=== PATIENT | male | born 1995 | race Caucasian/White ===

== ENCOUNTER 2021-05-20 13:46 | Emergency (ER) | payer OTHER ==
[2021-05-20 15:01] LABS: #Lymphocytes 1.3 thou/uL (1.20-3.40); #Monocytes 0.6 thou/uL (0.11-0.59); #Neutrophils 3.7 thou/uL (1.40-6.50); %Basophils 0.6 % (0.0-1.0); %Eosinophils 0.8 % (0.0-10.0); %Lymphocytes 22.3 % (21.0-51.0); %Monocytes 10.4 % (0.0-10.0); %Neutrophils 65.9 % (42.0-75.0); Hemoglobin 10.9 g/dL (14.0-18.0); Mean Corpuscular HGB CONC 29.6 g/dL (32.0-36.0); Mean Corpuscular Volume 74.4 fL (78.0-98.0); Mean Platelet Volume 9.3 fL (7.4-10.4); Platelet Count 345 thou/uL (130-400); RBC Distribution Width 18.1 % (11.5-14.5); Red Blood Cell (RBC) Count 4.97 mill/uL (4.70-6.10); White Blood Cell (WBC) Count 5.7 thou/uL (4.8-10.8)
[2021-05-20 15:20] LABS: Anisocytosis SLIGHT = 6-15 cells (100X) (0-5/hpf); Hypochromia SLIGHT = 6-15 cells (100X) (0-5/hpf); MDiff Complete? YES; Microcytosis SLIGHT = 6-15 cells (100X) (0-5/hpf); Platelet Morphology Comment Appears Adequate; Polychromasia SLIGHT = 2-3 cells (100X) (0-2/hpf); Stomatocytes SLIGHT = 2-5 cells (100X) (0-1/hpf)
[2021-05-20 15:29] LABS: ALT (SGPT) 15 U/L (8-55); AST (SGOT) 17 U/L (5-34); Albumin 4.2 g/dL (3.5-5.0); Alkaline Phosphatase 101 U/L (40-110); Anion Gap 15 mmol/L (10-20); BUN (Urea Nitrogen) 20 mg/dL (8.9-20.6); Bilirubin, Total 0.2 mg/dL (0.2-1.2); Calc. Creatinine Clearance 0 mL/min (70-130); Calcium 9.8 mg/dL (7.8-10.44); Carbon Dioxide 24 mmol/L (22-29); Chloride 105 mmol/L (98-107); Globulin 3.2 g/dL (2.4-3.5); Glucose 90 mg/dL (70-105); Potassium 3.8 mmol/L (3.5-5.1); Protein, Total 7.4 g/dL (6.0-8.3); Sodium 140 mmol/L (136-145)
== END 2021-05-20 17:05 | disposition home or self-care (01) ==
LOC: ERS 13:46
DX: D64.9 Anemia, unspecified (principal); Z87.891 Personal history of nicotine dependence
CPT/HCPCS: 36415; 80053; 85025; 99284

== ENCOUNTER 2022-07-21 18:17 | Inpatient (IN) | payer OTHER ==
[2022-07-21 21:22] VITALS: BMI 14.5
[2022-07-21] MEDS ORDERED: Acetaminophen 650 MG Suppository PR PRN (21:26)
[2022-07-21] MEDS ORDERED: Acetaminophen 325 MG TAB PO PRN ×2 (21:26→21:30)
[2022-07-21] MEDS ORDERED: Ondansetron ODT 4 MG TAB PO PRN (21:26)
[2022-07-21] MEDS ORDERED: Ondansetron PF 4 MG/2 ML Vial IVP PRN ×2 (21:26→21:30)
[2022-07-21] MEDS ORDERED: Ondansetron ODT 4 MG TAB SL PRN (21:30)
[2022-07-21] MEDS ORDERED: traZODone HCl 50 MG TAB PO SCH (23:00)
[2022-07-21] MEDS ORDERED: carBAMazepine 200 MG TAB PO SCH (23:00)
[2022-07-21] MEDS ORDERED: OLANZapine 5 MG TAB PO SCH (23:00)
[2022-07-22 00:02] LABS: Hemoglobin 6.8 g/dL (14.0-18.0)
[2022-07-22 08:16] LABS: Hemoglobin 8.3 g/dL (14.0-18.0); Mean Corpuscular HGB CONC 29.2 g/dL (32.0-36.0); Mean Corpuscular Hemoglobin 19.4 pg (27.0-31.0); Mean Corpuscular Volume 66.4 fl (78.0-98.0); Mean Platelet Volume 6.2 fL (7.4-10.4); Platelet Count 222 10x3/uL (130-400); RBC Distribution Width 27.5 % (11.5-14.5); Red Blood Cell (RBC) Count 4.26 mill/uL (4.70-6.10); White Blood Cell (WBC) Count 2.7 10x3/uL (4.8-10.8)
[2022-07-22 08:33] LABS: Band 1 % (5-11); Eosinophils 2 % (0-10); Hypochromia MARKED = >30 cells (100X) (0-5/hpf); Lymphocytes 49 % (21-51); MDiff Complete? YES; Microcytosis MODERATE=15-30 cells (100X) (0-5/hpf); Monocytes 8 % (0-10); Neutrophil 40 % (42-75); Platelet Morphology Comment Appears Adequate
[2022-07-22] MEDS: carBAMazepine 200 MG TAB PO SCH (09:18)
[2022-07-22 09:46] LABS: Iron 24 ug/dL (65-175); Iron Binding Capacity, Total 401 mcg/dL (261-462)
[2022-07-22 10:10] LABS: Ferritin Less than 2.00 ng/mL (22-322); Vitamin B12 418 pg/mL (211-911)
[2022-07-22] MEDS ORDERED: GoLYTELY 4,000 ml Bottle PO SCH (17:00)
[2022-07-22] MEDS: Iron, Sodium Ferric Gluconate 250 MG in Sodium Chloride 0.9% 250 ML 250 ML IVPB SCH (17:21)
[2022-07-22] MEDS ORDERED: OLANZapine 5 MG TAB PO SCH (21:00)
[2022-07-23] MEDS: carBAMazepine 200 MG TAB PO SCH ×2 (00:11→09:25)
[2022-07-23 06:39] LABS: Hemoglobin 8.7 g/dL (14.0-18.0)
[2022-07-23 06:55] LABS: Carbamazepine-Tegretol 7.8 ug/mL (4.0-12.0)
[2022-07-23] MEDS ORDERED: PROPOFOL 20 ML ONE (10:56)
[2022-07-23] MEDS ORDERED: Ketamine 50 MG/ML (10ML VIAL) ONE (10:56)
[2022-07-23] MEDS ORDERED: PROPOFOL 200 MG/20 ML VIAL ONE (11:05)
[2022-07-23] MEDS ORDERED: Promethazine HCl 25 MG/ML VIAL IM PRN (11:43)
[2022-07-23] MEDS ORDERED: Ondansetron HCl/PF 4 MG/2 ML Vial IVP PRN (11:43)
[2022-07-23] MEDS: Iron, Sodium Ferric Gluconate 250 MG in Sodium Chloride 0.9% 250 ML 250 ML IVPB SCH (15:01)
[2022-07-23 16:37] VITALS: BP 111/75; TEMP 98.2
[2022-07-25 12:50] LABS: EliA Celiac New Method **** NEW METHOD ****; t-Transglutaminase (tTG) IgA 1.9 EliAU/mL (<7 Negative)
[2022-08-01 21:36] LABS: Routine O & P Final report (.)
== END 2022-07-23 17:57 | disposition home or self-care (01) | DRG 811 ==
LOC: T4-A 21:11 → OBSVTOIN 21:26
PROVIDERS: ADMIT Internal Medicine; ATTEND Internal Medicine
PROC: 30233N1 Transfusion of Nonautologous Red Blood Cells into Peripheral Vein, Percutaneous Approach (ICD-10-PCS; principal; 2022-07-22)
PROC: 0DB88ZX Excision of Small Intestine, Via Natural or Artificial Opening Endoscopic, Diagnostic (ICD-10-PCS; 2022-07-23)
PROC: 0DJD8ZZ Inspection of Lower Intestinal Tract, Via Natural or Artificial Opening Endoscopic (ICD-10-PCS; 2022-07-23)
DX: D50.9 Iron deficiency anemia, unspecified (principal); E43 Unspecified severe protein-calorie malnutrition; Z68.1 Body mass index [BMI] 19.9 or less, adult; Z20.822 Contact with and (suspected) exposure to COVID-19; F20.9 Schizophrenia, unspecified; F31.9 Bipolar disorder, unspecified; F98.8 Other specified behavioral and emotional disorders with onset usually occurring in childhood and adolescence; F91.3 Oppositional defiant disorder; Z79.899 Other long term (current) drug therapy; Z82.0 Family history of epilepsy and other diseases of the nervous system; Z81.8 Family history of other mental and behavioral disorders
CPT/HCPCS: 36415; 36430; 80156; 82274; 82607; 82728; 83516; 83540; 83550; 85014; 85018; 85025; 86850; 86900; 86901; 87177; 88305; J2704; J2916; J7050; P9016